=== PATIENT | male | born 1965 | race Caucasian/White ===

== ENCOUNTER 2020-07-15 01:46 | Emergency (ER) | payer SELFPAY ==
--- NOTE | 2020-07-15 02:18 | EDM.PDOC ---
ED HPI GENERAL MEDICAL PROBLEM - General Chief Complaint: Trauma Stated Complaint: CUT FINGER TIP OFF Time Seen by Provider: 07/15/20 01:56 Source of Information: Reports: Patient History Limitations: Reports: Uncooperative - History of Present Illness INITIAL COMMENTS - FREE TEXT/NARRATIVE: Mr. Fabian is a 55-year-old male with no chronic medical problems and no past surgical history, who now presents the ED after the distal aspect of his left 5th finger was amputated when a piece of metal compressed his fingertip while he was helping to disassemble a stage for [employer], around 01:30 this morning. He states that it was raining, and the metal slipped. The patient acknowledges that he had 4 or 5 alcoholic beverages tonight. He is otherwise uninjured. He stated several times that he cannot believe that his finger does not hurt. Here in the ED, the patient's initial BP was found to be elevated at 160/94, otherwise, he was hemodynamically stable, afebrile, saturating 100% on room air. Other than his finger injury, the patient denies having a recent fever, chills, sore throat, ear pain, nasal or sinus congestion, cough, dyspnea, chest pain, palpitations, nausea, vomiting, constipation, diarrhea, abdominal pain, urinary symptoms, recent weight gain or weight loss, recent bloody bowel movements or black bowel movements, recent joint aches, headaches, or rashes. The patient does not have a PCP. Left Finger-Little Pain Score (Numeric/FACES): 2 - Related Data Allergies Allergy/AdvReac Type Severity Reaction Status Date / Time No Known Allergies Allergy Verified 07/15/20 02:01 Home Meds: Home Meds cephALEXin [Keflex] 1 tab PO Q6H #40 capsule 07/15/20 [Rx] Past Medical History - Past Health History Medical/Surgical History: Denies Medical/Surgical History Social & Family History - Family History Family Medical History: Noncontributory - Tobacco Use Smoking Status *Q: Former Smoker Tobacco Use Within Last Twelve Months: Smokeless Tobacco (Chews 1 can/week) Years of Tobacco use: 12 Packs/Tins Daily: 1 Month/Year Tobacco Last Used: Quit 1993 - Caffeine Use Caffeine Use: Reports: None - Alcohol Use Alcohol Use History: Yes Alcohol Use Frequency: Socially (occasionally to excess) - Recreational Drug Use Recreational Drug Use: Yes Drug Use in Last 12 Months: No Recreational Drug Type: Reports: Marijuana/Hashish (last smoked in college) - Living Situation & Occupation Living situation: Reports: (getting a divorce), with Family (Son) Occupation: Employed (Chiropractor) Review of Systems - Review of Systems Review Of Systems: Comprehensive ROS is negative, except as noted in HPI. ED EXAM, GENERAL - Physical Exam Exam: See Below Exam Limited By: Intoxication General Appearance: Alert, WD/WN, No Apparent Distress (Stated several times that he can't believe his finger doesn't hurt) Extremities: Other (The distal half of the distal phalanx of the left fifth finger appears to be amputated, with some bone sticking out of the tissue. The nailbed has been amputated, however, the DIP joint appears to be intact. No bleeding at this time.) Course - Vital Signs Last Recorded V/S: Last Vital Signs Temp 36.2 C 07/15/20 01:59 Pulse 100 07/15/20 01:59 Resp 15 07/15/20 01:59 BP 160/85 H 07/15/20 01:59 Pulse Ox 100 07/15/20 01:59 - Orders/Labs/Meds Orders: Active Orders 24 hr Category Date Time Status Fingers Fifth Digit Lt F4 [CR] Stat Exams 07/15/20 01:58 Stop Req Meds: Medications Discontinued Medications Generic Name Dose Route Start Last Admin Trade Name Freq PRN Reason Stop Dose Admin Cephalexin 500 mg 07/15/20 02:09 07/15/20 02:21 Keflex PO 07/15/20 02:10 Not Given ONETIME STA - Re-Assessments/Exams Free Text/Narrative Re-Assessment/Exam: 07/15/20 02:13 As above, the distal half of the distal phalanx of the patient's left 5th finger was amputated when a piece of metal fell while he was disassembling a stage shortly prior to arrival to the ED. On examination, the amputation is proximal to the nailbed. There is bone sticking out of the exposed tissue. The patient adamantly refused to undergo x-rays, initially stating that we do not need them, later stating that he will get some x-rays taken at his chiropractic clinic. For tonight's purposes, the finger will be dressed with a nonstick dressing, the patient will be given 500 mg of oral Keflex, and I will submit a prescription to complete a 10-day course. I will refer the patient to Dr. Carr; the patient can call his office later this morning. The patient is to take [id number] ibuprofen as needed for discomfort, since he did not want to be prescribed an opioid. Departure - Departure Time of Disposition: 02:18 Disposition: Home, Self-Care 01 Condition: Good Clinical Impression: Partial traumatic amputation of left little finger through phalanx - Discharge Information *PRESCRIPTION DRUG MONITORING PROGRAM REVIEWED*: Not Applicable *COPY OF PRESCRIPTION DRUG MONITORING REPORT IN PATIENT ISAAC: Not Applicable Prescriptions: cephALEXin [Keflex] 1 tab PO Q6H #40 capsule Referrals: Abram Carr MD [Physician] - PCP,None [Primary Care Provider] - Forms: ED Department Discharge Additional Instructions: You were seen in the emergency room after the distal tip of your left 5th finger was amputated when a piece of metal compressed it while disassembling a stage. You refused to undergo x-rays in the ER. Your finger was bandaged with a nonstick dressing. You were started on the antibiotic Keflex, and a prescription for Keflex has been sent to the [facility], located at [address] [place] [address]. Take 1 tablet of Keflex every 6 hours, as prescribed. Finish the entire prescription unless told otherwise by Dr. Carr. You declined an offer for an opioid pain reliever. Take [id number] ibuprofen, 3 to 4 tablets (600-800 mg) up to every 8 hours, with food, as needed for discomfort. Contact the office of the Orthopedic Surgeon Dr. Abram Carr this morning, to make an appointment to be seen as soon as possible. Make sure that the cashier receptionist understands that you suffered a partial finger amputation, and that the ER recommended that you be seen right away. If any other problems, please do not hesitate to return to the ER. Sepsis Event Note (ED) - Evaluation Sepsis Screening Result: No Definite Risk - Focused Exam Vital Signs: Vital Signs Temp Pulse Resp BP Pulse Ox 07/15/20 01:59 36.2 C 100 15 160/85 H 100 07/15/20 01:51 36.2 C 100 15 160/94 H 100 - My Orders Last 24 Hours: My Active Orders 07/15/20 01:58 Fingers Fifth Digit Lt F4 [CR] Stat - Assessment/Plan Last 24 Hours: My Active Orders 07/15/20 01:58 Fingers Fifth Digit Lt F4 [CR] Stat
[2020-07-15] MEDS: Cephalexin 500 MG Cap PO STA ×2 (02:20→02:21)
== END 2020-07-15 02:29 | disposition home or self-care (01) ==
LOC: JD.ED 01:46
DX: S68.627A Partial traumatic transphalangeal amputation of left little finger, initial encounter (principal); Z87.891 Personal history of nicotine dependence; W23.0XXA Caught, crushed, jammed, or pinched between moving objects, initial encounter
CPT/HCPCS: 99283; A9270-GY